=== PATIENT | female | born 1955 | race African-American/Black ===

== ENCOUNTER 2017-07-24 05:51 | Emergency (ER) | payer OTHER ==
[~2017-07-24] VITALS: Ht 162.6 cm; Wt 104.3 kg
[~2017-07-24 05:51] MED LIST: AMLODIPINE BESY10 MG ORAL; ASPIRIN EC81 MG ORAL; ASPIRIN81 MG ORAL; ATENOLOL100 MG ORAL; ATORVASTATIN CA20 MG ORAL; B-50 COMPLEX1 EAC1 PO; CALCIUM600 M1 PO; CITALOPRAM HBR40 M1 ORAL; COREG6.25 MG ORAL; DIOVAN160 MG ORAL; FERROUS SULFAT325 MG ORAL; GABAPENTIN300 MG ORAL; GABAPENTIN600 MG ORAL; GLIPIZIDE5 MG ORAL; GLUCOSAMINE1000 M1 PO; HYDRALAZINE HCL25 M1 ORAL; ISOSORBIDE DINIT5 MG ORAL; METFORMIN HCL500 M1 ORAL; MINOXIDIL2.5 MG PO; OMEGA 3 1,0001 EACH PO; ONDANSETRON ODT4 MG ORAL; OYSTER SHELL C1 EA15 PO; PROTONIX40 MG ORAL; REGLAN10 MG PO; REGLAN5 MG PO; TACTINAL500 M1 PO; TENORMIN50 MG ORAL; TRAZODONE HCL100 MG ORAL; UNOBMED; VITAMIN D31000 UNI2 PO; VITAMIN D400 INTLU ORAL
[2017-07-24 05:55] VITALS: BP 171/100
--- NOTE | 2017-07-24 06:05 | Emergency Room Report ---
History of Present Illness General Chief Complaint: Abdominal Pain Source: Patient (Nasra Martines M.D.) Present Illness HPI 62 yo female with DM, cholecystectomy p/w abdominal pain x 1 day. Patient states pain started when she woke up , localized to epigastric region, non radiating, crampy in nature, intermittent. No relieving or exacerbating factors. Severity is 10 out of 10. Pt reports n/v, 10 episodes of nbnb vomiting, 10 episodes of watery non bloody diarrhea Denies nvd. Denies fever, chills. +cholecystectomy No hx of endoscopies/colonoscopies. Upon review of medical records, patient has been to the emergency room multiple times for abdominal pain, has had CAT scans performed with no acute disease, the last being in 2016. (Nasra Martines M.D.) Allergies: Coded Allergies: No Known Allergies (Verified , 09/25/06) Patient History Past Medical History: see triage record Past Surgical History: kelly Pertinent Family History: none Last Menstrual Period: 2006 Now: No : 3 Para: 3 Reviewed Nursing Documentation: PMH: Agreed, PSxH: Agreed (Nasra Martines M.D. ) Nursing Documentation-PMH Hx Cardiac Problems: Yes Hx Hypertension: Yes Hx Diabetes: Yes Hx Gastrointestinal Problems: Yes - gastroparesis History Of Psychiatric Problem: Yes - Depression (Nasra Martines M.D.) Review of Systems All Other Systems: negative except mentioned in HPI (Nasra Martines M.D.) Physical Exam Vital Signs Date Time Temp Pulse Resp B/P (MAP) Pulse Ox O2 Delivery O2 Flow Rate FiO2 07/24/17 05:44 97.9 75 19 171/100 100 Room Air Sp02 EP Interpretation: reviewed, normal General Appearance: alert, GCS 15, non-toxic, moderate distress, other - Middle aged female, appears to be in pain, however nontoxic, conversing appropriately Head: normocephalic, atraumatic Eyes: bilateral eye normal inspection, bilateral eye PERRL, bilateral eye EOMI ENT: normal ENT inspection, normal pharynx, normal voice, moist mucus membranes Neck: normal inspection, full range of motion, supple Respiratory: normal inspection, lungs clear, normal breath sounds, no respiratory distress, no retraction, no wheezing, speaking full sentences, chest symmetrical Cardiovascular #1: normal inspection, regular rate, rhythm, no edema, normal capillary refill Cardiovascular #2: 2+ radial (R), 2+ radial (L) Gastrointestinal: non-distended, no guarding, other - Tender to epigastric region, no guarding or rebound Musculoskeletal: normal inspection, back normal, normal range of motion, non- tender Neurologic: normal inspection, alert, oriented x3, responsive, motor strength/ tone normal, sensory intact, normal gait, speech normal Psychiatric: normal inspection, judgement/insight normal, memory normal Skin: normal inspection, normal color, no rash, warm/dry, well hydrated, normal turgor (Nasra Martines M.D.) Procedures Central Line Central Line : Consent: Written Central Line Lumen: triple Maximal Sterile Barrier Tech: yes cap, yes mask, yes sterile gown, yes sterile gloves, yes large sterile sheet, yes hand hygiene, yes chlorhexidine prep Central Line Postion: femoral (R) Anesthesia: Lidocaine cc's of anesthesia: 5 Complications: none Central Line Post Position: sutured, good blood return Attempts: One Patient Tolerated: Well Complications: None (Nasra Martines M.D.) Medical Decision Making Diagnostic Impression: Primary Impression: Abdominal pain Additional Impressions: Diabetic gastroparesis Renal insufficiency drug seeking behavior Uncontrolled diabetes mellitus Qualified Codes: E13.8 - Other specified diabetes mellitus with unspecified complications; E13.65 - Other specified diabetes mellitus with hyperglycemia ER Course 62 yo female, hx cholecystectomy, with epigastric pain Differential Diagnosis: DKA, Gastritis, gastroenteritis, appendicitis, diverticulitis, UTI/pyelo At this time abdomen is soft nontender in lower quadrants, not likely to have acute intra-abdominal surgical pathology such as appy, will hold CT for now. Plan: Basic labs, ua, ekg zofran, pain control, IVF will hold CT for now as patient tender only in epigastrum ER course: multiple attempts for peripheral line without success R femoral central line placed as patient could not tolerate laying flat for IJ due to nausea Signed out patient to Dr Cardoso -pending labs -consider imaging however at this time pt nontender lower quadrants -pending symptom control (Nasra Martines M.D.) ER Course Hospital Course 62 yo F presents to ED c/o abdominal pain, vomiting, hyperglycemia Clinical course Patient initially seen and evaluated by Dr. Martines; please see her note for full history and physical Patient pending labs. Endorsed to accepting physician. Central line placed as patient has poor IV access Labs-glucose greater than 300, no DKA, BUN/Cr elevated EKG - NSR, no acute changes interpreted by me patient requiring multiple rounds of medication to get pain control and to stop vomiting Because of insurance patient will be transferred i. I feel this is a highly complex case requiring extensive working including EKG/Rhythm strip, Xray/CT/US, Blood/urine lab work, repeat exams while in ED, and administration of strong opiates/narcotics for pain control, admission to hospital or close patient follow up. diagnosis - abdominal pain, diabetic gastroparesis, renal insufficiency, drug seeking behavior, uncontrollable diabetes Transferred in serious condition Labs Test 07/24/17 07:02 07/24/17 07:05 Venous Bld O2 Saturation (Measured) 7.40 Methemoglobin 0.5 White Blood Count 15.0 K/UL (4.8-10.8) Red Blood Count 4.43 M/UL (4.20-5.40) Hemoglobin 13.7 G/DL (12.0-16.0) Hematocrit 41.7 % (37.0-47.0) Mean Corpuscular Volume 94 FL (80-99) Mean Corpuscular Hemoglobin 30.9 PG (27.0-31.0) Mean Corpuscular Hemoglobin Concent 32.9 G/DL (32.0-36.0) Red Cell Distribution Width 12.3 % (11.6-14.8) Platelet Count 192 K/UL (150-450) Mean Platelet Volume 7.0 FL (6.5-10.1) Neutrophils (%) (Auto) % (45.0-75.0) Lymphocytes (%) (Auto) % (20.0-45.0) Monocytes (%) (Auto) % (1.0-10.0) Eosinophils (%) (Auto) % (0.0-3.0) Basophils (%) (Auto) % (0.0-2.0) Differential Total Cells Counted 100 Neutrophils % (Manual) 88 % (45-75) Lymphocytes % (Manual) 10 % (20-45) Monocytes % (Manual) 2 % (1-10) Eosinophils % (Manual) 0 % (0-3) Basophils % (Manual) 0 % (0-2) Band Neutrophils 0 % (0-8) Platelet Estimate Adequate Platelet Morphology Normal Red Blood Cell Morphology Normal Sodium Level 136 mEQ/L (135-145) Potassium Level 3.4 mEQ/L (3.4-4.9) Chloride Level 97 mEQ/L (98-107) Carbon Dioxide Level 16 mEQ/L (20-30) Anion Gap 23 (5-15) Blood Urea Nitrogen 34 mg/dL (7-23) Creatinine 1.8 mg/dL (0.5-0.9) Estimat Glomerular Filtration Rate 34.5 mL/min (>60) Glucose Level 356 mg/dL (74-106) Calcium Level 10.4 mg/dL (8.6-10.2) Total Bilirubin 0.8 mg/dL (0.0-1.2) Aspartate Amino Transf (AST/SGOT) 26 U/L (5-40) Alanine Aminotransferase (ALT/SGPT) 31 U/L (3-33) Alkaline Phosphatase 151 U/L (35-104) Total Protein 8.4 g/dL (6.6-8.7) Albumin 4.5 g/dL (3.5-5.2) Globulin 3.9 g/dL Albumin/Globulin Ratio 1.1 (1.0-2.7) Lipase 49 U/L (< 60) Acetone Level Negative (NEGATIVE) (RENALDO CARDOSO M.D.) EKG Diagnostic Results Rate: normal Rhythm: NSR ST Segments: no acute changes ASA given to the pt in ED: No (RENALDO CARDOSO M.D.) Rhythm Strip Diag. Results EP Interpretation: yes Rhythm: NSR, no PVC's, no ectopy (RENALDO CARDOSO M.D.) Last Vital Signs Date Time Temp Pulse Resp B/P (MAP) Pulse Ox O2 Delivery O2 Flow Rate FiO2 07/24/17 05:44 97.9 75 19 171/100 100 Room Air (Nasra Martines M.D.) Status: improved (RENALDO CARDOSO M.D.) Disposition: XFER [facility] Condition: Serious Nasra Martines M.D. Jul 24, 2017 06:05 RENALDO CARDOSO M.D. Jul 24, 2017 08:45
[2017-07-24 07:12] LABS: O2 CONTENT VENOUS 7.4
[2017-07-24 07:19] LABS: MEAN CORPUSCULAR HEMOGLOBIN 30.9 PG (27.0-31.0); MEAN CORPUSCULAR HGB CONC 32.9 G/DL (32.0-36.0); MEAN CORPUSCULAR VOLUME 94 FL (80-99); PLATELET COUNT 192 K/UL (150-450); RED BLOOD COUNT 4.43 M/UL (4.20-5.40); RED CELL DISTRIBUTION WIDTH 12.3 % (11.6-14.8)
[2017-07-24 07:32] LABS: ALBUMIN/GLOBULIN RATIO 1.1 (1.0-2.7); CALCIUM 10.4 mg/dL (8.6-10.2); CREATININE 1.8 mg/dL (0.5-0.9); GLOMERULAR FILTRATION RATE 34.5 mL/min (>60); POTASSIUM 3.4 mEQ/L (3.4-4.9); TOTAL PROTEIN 8.4 g/dL (6.6-8.7)
[2017-07-24] MEDS ORDERED: Famotidine 20 MG/ 2ML VIAL IVP ONE (07:45)
[2017-07-24] MEDS ORDERED: HYDROmorphone 1mg/ml Carpuject IVP ONE (07:45)
[2017-07-24 07:49] VITALS: BP 201/76
[2017-07-24 07:55] VITALS: BP 183/92
[2017-07-24] MEDS ORDERED: Metoclopramide 10mg/2ml Inj IVP ONE (08:00)
[2017-07-24 08:17] LABS: LYMPHOCYTES % (MANUAL) 10 % (20-45); NEUTROPHILS % (MANUAL) 88 % (45-75); TOTAL CELLS COUNTED 100
[2017-07-24 08:18] LABS: BAND NEUTROPHILS % (MANUAL) 0 % (0-8); BASOPHILS % (MANUAL) 0 % (0-2); EOSINOPHILS % (MANUAL) 0 % (0-3); PLATELET ESTIMATE ADEQUATE; PLATELET MORPHOLOGY NORMAL
[2017-07-24 08:35] VITALS: BP_SYST 176; BP_SYST 184; BP_DIAS 117; BP_DIAS 84
--- NOTE | 2017-08-11 16:15 | Cardiology Report ---
APPROVED REPORT EKG Measurement Heart [id number] Normal sinus rhythm Left anterior fascicular block Prolonged QT Abnormal ECG
== END 2017-07-24 08:40 | disposition short-term general hospital (02) ==
LOC: EDBD 05:51 → EMR 06:00
DX: R10.9 Unspecified abdominal pain (principal); E11.43 Type 2 diabetes mellitus with diabetic autonomic (poly)neuropathy; E11.65 Type 2 diabetes mellitus with hyperglycemia; K31.84 Gastroparesis; N28.9 Disorder of kidney and ureter, unspecified; Z76.5 Malingerer [conscious simulation]; I10 Essential (primary) hypertension
CPT/HCPCS: 36415; 80053; 82009; 83690; 85007; 85025; 93005; 96361; 96372; 96374; 96375; 96376; 99285; J0360; J1170; J2405; J2765; S0028; Z7502; 96360

== ENCOUNTER 2017-10-26 12:42 | Emergency (ER) | payer OTHER ==
[~2017-10-26] VITALS: Ht 162.6 cm; Wt 93.4 kg
[2017-10-26 12:45] VITALS: BP 185/82
[2017-10-26] MEDS ORDERED: Haloperidol 5mg/ml Inj IM ONE (13:15)
--- NOTE | 2017-10-26 13:24 | Emergency Room Report ---
History of Present Illness General Chief Complaint: Abdominal Pain Source: Patient, Medical Record, EMS Present Illness HPI 62-year-old female brought in by EMS with severe epigastric pain Started at home this morning States nausea without vomiting, no diarrhea, no fever or chills She denies chest pain or shortness of breath Denies urinary complaints Review of EMR shows significant number of visits to ER for intractable abdominal pain and/or vomiting Has known gastroparesis due to diabetes that is poorly controlled Patient states home medications are not working Review of EMR also shows suspicion for drug-seeking behavior and opiate dependence On previous visit patient had poor IV access, required central line Soley to give pain medication previous CT showed likely esophagitis Allergies: Coded Allergies: No Known Allergies (Verified , 09/25/06) Patient History Past Medical History: DM, HTN Past Surgical History: none Pertinent Family History: none Social History: Denies: smoking, alcohol use, drug use Now: No Immunizations: UTD Reviewed Nursing Documentation: PMH: Agreed, PSxH: Agreed Nursing Documentation-PMH Past Medical History: No History, Except For Hx Cardiac Problems: Yes Hx Hypertension: Yes Hx Diabetes: Yes Hx Gastrointestinal Problems: Yes - gastroparesis Review of Systems All Other Systems: negative except mentioned in HPI Physical Exam Vital Signs Date Time Temp Pulse Resp B/P (MAP) Pulse Ox O2 Delivery O2 Flow Rate FiO2 10/26/17 12:35 98.1 82 16 187/87 97 Room Air Sp02 EP Interpretation: reviewed, normal General Appearance: normal inspection, well appearing, no apparent distress, alert, GCS 15, non-toxic, other - Patient writhing on stretcher, dry heaving without vomiting Head: normocephalic, atraumatic Eyes: bilateral eye PERRL, bilateral eye EOMI ENT: normal ENT inspection, hearing grossly normal, normal voice Neck: normal inspection, full range of motion, supple, no bony tend Respiratory: normal inspection, lungs clear, normal breath sounds, no respiratory distress, no retraction, no wheezing Cardiovascular #1: regular rate, rhythm, no edema Gastrointestinal: normal inspection, normal bowel sounds, non tender, soft, no guarding, no hernia Genitourinary: no CVA tenderness Musculoskeletal: normal inspection, back normal, normal range of motion, Shamika' s Sign negative Neurologic: normal inspection, alert, oriented x3, responsive, scheduling agent III-XII nml as tested, speech normal Medical Decision Making Diagnostic Impression: Primary Impression: Abdominal pain Additional Impressions: drug seeking behavior gastroparesis ER Course 62-year-old female With epigastric pain and known diabetes and gastroparesis Vital signs stable, afebrile Abdomen exam nonfocal and serial exam Given previously difficult to control pain and intractable vomiting and need for multiple rounds of IV narcotics, will try haldol as per recent study: [email or web address] Haldol successful Patient resting comfortably in stretcher vital signs have been stable, and inconsistent with her complaints of pain and vomiting With low-dose Haldol 2.5 IM patient with resolution of symptoms able to walk the bathroom feels much better Discharge home Rhythm Strip Diag. Results EP Interpretation: yes Rate: 84 Rhythm: NSR, no PVC's, no ectopy Last Vital Signs Date Time Temp Pulse Resp B/P (MAP) Pulse Ox O2 Delivery O2 Flow Rate FiO2 10/26/17 12:45 96.5 80 16 185/82 100 Room Air Status: improved Disposition: HOME, SELF-CARE DESHAWN COHEN M.D. Oct 26, 2017 13:24
[2017-10-26 15:50] VITALS: BP 181/86
== END 2017-10-26 16:25 | disposition home or self-care (01) ==
LOC: EDBD 12:42 → EMR 13:06
DX: R10.13 Epigastric pain (principal); K31.84 Gastroparesis; Z76.5 Malingerer [conscious simulation]; I10 Essential (primary) hypertension; E11.9 Type 2 diabetes mellitus without complications
CPT/HCPCS: 96372; 99283; J1630

== ENCOUNTER 2020-04-18 05:57 | Emergency (ER) | payer MEDICARE, OTHER ==
[~2020-04-18] VITALS: Ht 170.2 cm; Wt 127.0 kg
[2020-04-18 06:07] VITALS: BP 207/111
--- NOTE | 2020-04-18 06:07 | NUR ---
ED Nurse Note: pt biba frmo home CO abdominal pain, n/v and elevated BS (469) by ambulance. Pt VS elevated, see interventions; ERMD aware. Pt aao x 4, ambulatory with steady gait, skin intact. Pt states hx of gastroparesis. Pt actively retching and vomiting clear emesis, approx 200ml. ERMD at bedside
[2020-04-18] MEDS ORDERED: TRAZODONE HCL150 MG ORAL (06:13)
[2020-04-18] MEDS ORDERED: CARVEDILOL12.5 MG ORAL (06:13)
[2020-04-18] MEDS ORDERED: ERYTHROCIN STE250 MG PO (06:13)
[2020-04-18] MEDS ORDERED: ATORVASTATIN CA40 MG ORAL (06:13)
[2020-04-18] MEDS ORDERED: GLIPIZIDE5 MG ORAL (06:13)
[2020-04-18] MEDS ORDERED: AMLODIPINE BES2.5 MG ORAL (06:13)
--- NOTE | 2020-04-18 06:14 | Emergency Room Report ---
History of Present Illness General Chief Complaint: Abdominal Pain Source: Patient, EMS Present Illness HPI Patient is brought in by EMS. She complains of abdominal pain that began yesterday evening. It is epigastric nonradiating. She has been also nauseated and vomiting unable to keep anything down today. Her blood glucose in the field was 459. The patient is a hpo-ikxvawd-hqfadnigk diabetic. She has had pain like this before and states that it is consistent with gastroparesis. She has had diarrhea that she has not noted the color but denies having any blood. She is not vomiting any blood. She feels feverish but did not document a temperature. She denies dysuria. Her blood pressure was also elevated in the field. She denies any chest pain or palpitations. She rates the pain 10/10 and burning and pressure in her epigastric area. No chills, sore throat, shortness of breath, cough, joint pain, rashes, depression, anxiety, visual changes, dizziness, headache. When last here, she was felt to exhibit pain medicine seeking behavior. Review of charts reveal no h/o pancreatitis (although in retrospect patient says there was something mentioned about her pancreas but she cannot remember the specifics). Allergies: Coded Allergies: No Known Allergies (Verified , 09/25/06) COVID-19 Screening Contact w/high risk pt: No Recent Travel to affected area: No Experienced COVID-19 symptoms?: No COVID-19 Testing performed DENTAL ASSISTANT TEACHER: No Patient History Past Medical History: see triage record Past Surgical History: kelly Social History: Denies: smoking, alcohol use Social History Narrative lives with daughter Reviewed Nursing Documentation: PMH: Agreed; PSxH: Agreed Nursing Documentation-PM Past Medical History: No History, Except For Hx Cardiac Problems: Yes Hx Hypertension: Yes Hx Diabetes: Yes Hx Gastrointestinal Problems: Yes - gastroparesis Review of Systems All Other Systems: negative except mentioned in HPI Physical Exam Vital Signs Date Time Temp Pulse Resp B/P (MAP) Pulse Ox O2 Delivery O2 Flow Rate FiO2 04/18/20 05:59 99.0 84 16 207/111 (143) 94 Room Air Sp02 EP Interpretation: reviewed, normal General Appearance: GCS 15, non-toxic, mild distress - pain, obese Head: normocephalic, atraumatic Eyes: bilateral eye normal inspection, bilateral eye PERRL, bilateral eye EOMI ENT: moist mucus membranes Neck: supple Respiratory: normal inspection Cardiovascular #1: regular rate, rhythm, no edema Cardiovascular #2: 2+ radial (R) Gastrointestinal: normal inspection, normal bowel sounds, no mass, non- distended, no guarding, no rebound, tenderness - Epigastric Genitourinary: no CVA tenderness Musculoskeletal: back normal, normal range of motion, no calf tenderness, gait/ station normal Neurologic: alert, oriented x3, grossly normal Psychiatric: anxious - In pain Skin: no rash, warm/dry, other - Lipoma right posterior neck Procedures Critical Care Time Critical Care Time Total Critical Care Time: 30 min bedside evaluation and treatment excludes procedures (EKG, CVP). Reason for critical care: hyperglycemia, repeated exams, analgesia, elevated lactic acid, treatment of hypertension Possible complications: hypotension, hypertension, MD, shock, arrhythmias, metabolic acidosis, end organ damage, respiratory failure. Interventions: CVP, repeated exams and administration of analgesics, treatment of hyperglycemia with fluids and insulin, hydralazine Course: Diabetic patient with epigastric pain and hyperglycemia. RNs unable to start IV. Analgesia and Reglan rewritten IM. CVP and labs obtained. Hyperglycemia treated with fluids. Repeat eval after fluid bolus and insulin ordered. Repeat analgesia and zofran. Unable to give PO meds for hypertension - hydralazine given. Repeat BP better controlled. Discussion with accepting MD. Consultations: nursing staff, EMS, accepting MD Performed by: Dr. Hatfield Tolerated well condition = serious Central Line Central Line : Consent: Verbal Central Line Lumen: triple Maximal Sterile Barrier Tech: yes cap, yes mask, yes sterile gown, yes sterile gloves, yes large sterile sheet, yes hand hygiene, yes chlorhexidine prep Central Line Postion: femoral (L) Anesthesia: Lidocaine cc's of anesthesia: 10 Complications: none Central Line Post Position: sutured, good blood return Attempts: One Patient Tolerated: Well Complications: None Progress bloods drawn for lab = 20 ml. EBL = 23 ml Medical Decision Making Diagnostic Impression: Primary Impression: Acute pancreatitis Qualified Codes: K85.90 - Acute pancreatitis without necrosis or infection, unspecified Additional Impressions: Hyperglycemia Diabetic gastroparesis Elevated lactic acid level Renal insufficiency Hypertension Qualified Codes: I10 - Essential (primary) hypertension Dehydration Leukocytosis Qualified Codes: D72.828 - Other elevated white blood cell count ER Course Diabetic patient presents with abdominal pain and hyperglycemia. Differential includes diabetic ketoacidosis, diabetic gastroparesis, gastritis, pancreatitis , cholecystitis amongst others. Based on her history and physical exam most likely diagnosis is diabetic gastroparesis. Evaluation with EKG, chest x-ray, abdominal film and labs. Treatment with IV hydration, Reglan, Benadryl, Pepcid and morphine. Serial blood sugars will be obtained and it is expected that her glucose will improve with IV hydration. Meds given IM as needed central line. Central line started and blood drawn. Chest x-ray with increased birch. Abdomen status post Ana, central line in place with paucity of gas. Recheck 464 after initial bolus. Insulin 10 units given IV. Patient with continued pain. Dilaudid given 2 doses. Labs significant for leukocytosis, hyperglycemia with bicarb of 19, lipase 1981. Elevated lactic acid. Even though leukocytosis and elevated lactic acid, no obvious infective source and antibiotics held. Ultrasound not emergent as patient post kelly and also abdomen soft. Patient blood pressure remains high. As she is n.p.o. hydralazine is given IV as her heart rate is 84 at this time. Discussed with receiving physician Dr. Prasad accepts the patient. BP improved after hydralazine. Glucose 312 and trending down. Pain improved 1121. Repeat lactic acid normal. Stable for transfer. Laboratory Tests Test 04/18/20 07:05 04/18/20 07:45 04/18/20 08:28 Sodium Level 141 MMOL/L (136-145) Potassium Level 4.3 MMOL/L (3.5-5.1) Chloride Level 101 MMOL/L (98-107) Carbon Dioxide Level 19 MMOL/L (21-32) L Anion Gap 21 mmol/L (5-15) H Blood Urea Nitrogen 44 mg/dL (7-18) H Creatinine 2.5 MG/DL (0.55-1.30) H Estimated Glomerular Filtration Rate 23.4 mL/min (>60) Glucose Level 518 MG/DL (74-106) *H Lactic Acid Level 3.70 mmol/L (0.4-2.0) H 1.70 mmol/L (0.66-2.22) Calcium Level 9.6 MG/DL (8.5-10.1) Magnesium Level 1.7 MG/DL (1.8-2.4) L Total Bilirubin 0.8 MG/DL (0.2-1.0) Aspartate Amino Transferase (AST) 56 U/L (15-37) H Alanine Aminotransferase (ALT) 51 U/L (12-78) Alkaline Phosphatase 147 U/L (46-116) H Troponin I 0.009 ng/mL (0.000-0.056) Total Protein 8.3 G/DL (6.4-8.2) H Albumin 3.9 G/DL (3.4-5.0) Globulin 4.4 g/dL Albumin/Globulin Ratio 0.9 (1.0-2.7) L Lipase 1981 U/L (73-393) H White Blood Count 13.3 K/UL (4.8-10.8) H Red Blood Count 3.80 M/UL (4.20-5.40) L Hemoglobin 12.1 G/DL (12.0-16.0) Hematocrit 34.0 % (37.0-47.0) L Mean Corpuscular Volume 89 FL (80-99) Mean Corpuscular Hemoglobin 31.7 PG (27.0-31.0) H Mean Corpuscular Hemoglobin Concent 35.5 G/DL (32.0-36.0) Red Cell Distribution Width 11.6 % (11.6-14.8) Platelet Count 171 K/UL (150-450) Mean Platelet Volume 6.9 FL (6.5-10.1) Neutrophils (%) (Auto) % (45.0-75.0) Lymphocytes (%) (Auto) % (20.0-45.0) Monocytes (%) (Auto) % (1.0-10.0) Eosinophils (%) (Auto) % (0.0-3.0) Basophils (%) (Auto) % (0.0-2.0) Differential Total Cells Counted 100 Neutrophils % (Manual) 87 % (45-75) H Lymphocytes % (Manual) 8 % (20-45) L Monocytes % (Manual) 5 % (1-10) Eosinophils % (Manual) 0 % (0-3) Basophils % (Manual) 0 % (0-2) Band Neutrophils 0 % (0-8) Platelet Estimate Adequate Platelet Morphology Normal Red Blood Cell Morphology Normal Prothrombin Time 12.1 SEC (9.30-11.50) H Prothrombin Time INR 1.1 (0.9-1.1) Activated Partial Thromboplast Time 24 SEC (23-33) Urine Color Pale yellow Urine Appearance Clear Urine pH 6 (4.5-8.0) Urine Specific [place] 1.010 (1.005-1.035) Urine Protein 4+ (NEGATIVE) H Urine Glucose (UA) 4+ (NEGATIVE) H Urine Ketones 2+ (NEGATIVE) H Urine Blood 4+ (NEGATIVE) H Urine Nitrite Negative (NEGATIVE) Urine Bilirubin Negative (NEGATIVE) Urine Urobilinogen Normal MG/DL (0.0-1.0) Urine Leukocyte Esterase Negative (NEGATIVE) Urine RBC 2-4 /HPF (0 - 2) H Urine WBC 0 /HPF (0 - 2) Urine Squamous Epithelial Cells Few /LPF (NONE/OCC) Urine Bacteria Few /HPF (NONE) EKG Diagnostic Results Rate: normal Rhythm: NSR ST Segments: no acute changes Rhythm Strip Diag. Results EP Interpretation: yes Rhythm: NSR, no PVC's, no ectopy Chest X-Ray Diagnostic Results Chest X-Ray Diagnostic Results : Chest X-Ray Ordered: Yes # of Views/Limited/Complete: 1 View Indication: Other EP Interpretation: Yes Interpretation: no consolidation, no effusion, no pneumothorax, other - Increase birch bilaterally Impression: Other Electronically Signed by: Electronically signed by Lui Hatfield MD Other X-Ray Diagnostic Results Other X-Ray Diagnostic Results : X-Ray ordered: Abdomen # of Views/Limited Vs Complete: 2 View Indication: Pain EP Interpretation: Yes Interpretation: no sbo, other - Paucity of gas, kelly clips, central line left Impression: Other Electronically Signed by: Electronically signed by Lui Hatfield MD Last Vital Signs Date Time Temp Pulse Resp B/P (MAP) Pulse Ox O2 Delivery O2 Flow Rate FiO2 04/18/20 11:35 98.9 81 19 138/74 96 Room Air Status: improved Disposition: SHORT-TERM [facility] Condition: Serious Lui Hatfield MD April 18, 2020 06:14
[2020-04-18] MEDS ORDERED: Metoclopramide 10mg/2ml Inj IVP ONE (06:15)
[2020-04-18] MEDS ORDERED: Morphine Sulfate 4mg/ml Inj (IV USE ONLY) IVP ONE (06:15)
[2020-04-18] MEDS ORDERED: DiphenhydrAMINE 50mg/ml Inj IVP ONE (06:15)
--- NOTE | 2020-04-18 06:30 | NUR ---
ED Nurse Note: ERMD at bedside
--- NOTE | 2020-04-18 06:50 | NUR ---
ED Nurse Note: all medications administered, pt tolerated well. will continue to monitor.
[2020-04-18] MEDS ORDERED: DiphenhydrAMINE 50mg/ml Inj IM ONE (07:00)
[2020-04-18] MEDS ORDERED: Lidocaine 1% Plain 30 ml INJ ONE (07:00)
[2020-04-18] MEDS ORDERED: Morphine Sulfate 10mg/ml Inj IM ONE (07:00)
[2020-04-18] MEDS ORDERED: Metoclopramide 10mg/2ml Inj IM ONE (07:00)
--- NOTE | 2020-04-18 07:05 | NUR ---
ED Nurse Note: ERMD at bedside for central line placement
--- NOTE | 2020-04-18 07:10 | NUR ---
ED Nurse Note: All bloodwork sent to lab
--- NOTE | 2020-04-18 07:20 | NUR ---
HAND-OFF: Report given to SANDRO Burgos.
[2020-04-18 07:22] VITALS: BP 189/101
--- NOTE | 2020-04-18 07:22 | NUR ---
ED Nurse Note: Received report from Bud JO. Pt awake, alert and oriented. Not in any distress. Will cont to monitor.
--- NOTE | 2020-04-18 07:32 | NUR ---
ED Nurse Note: Xray at bedside.
--- NOTE | 2020-04-18 07:57 | NUR ---
ED Nurse Note: Blood and urine specimen collected and sent to lab.
[2020-04-18 08:02] LABS: ALANINE AMINOTRANSFERASE 51 U/L (12-78); ALBUMIN 3.9 G/DL (3.4-5.0); ALBUMIN/GLOBULIN RATIO 0.9 (1.0-2.7); ALKALINE PHOSPHATASE 147 U/L (46-116); ANION GAP 21 mmol/L (5-15); ASPARTATE AMINO TRANSFERASE 56 U/L (15-37); BILIRUBIN,TOTAL 0.8 MG/DL (0.2-1.0); BLOOD UREA NITROGEN 44 mg/dL (7-18); CALCIUM 9.6 MG/DL (8.5-10.1); CARBON DIOXIDE 19 MMOL/L (21-32); CHLORIDE 101 MMOL/L (98-107); CREATININE 2.5 MG/DL (0.55-1.30); POTASSIUM 4.3 MMOL/L (3.5-5.1); SODIUM 141 MMOL/L (136-145)
[2020-04-18 08:07] LABS: APPEARANCE,URINE CLEAR; BILIRUBIN, URINE NEGATIVE (NEGATIVE); COLOR,URINE PALE YELLOW; GLUCOSE, URINE (UA) 4+ (NEGATIVE); KETONES,URINE 2+ (NEGATIVE); LEUKOCYTE ESTERASE ,URINE NEGATIVE (NEGATIVE); NITRITE,URINE NEGATIVE (NEGATIVE); PH,URINE 6 (4.5-8.0); PROTEIN,URINE 4+ (NEGATIVE); UROBILINOGEN,URINE NORMAL MG/DL (0.0-1.0)
[2020-04-18 08:09] LABS: HEMOGLOBIN 12.1 G/DL (12.0-16.0); MEAN CORPUSCULAR VOLUME 89 FL (80-99); PLATELET COUNT 171 K/UL (150-450); RED CELL DISTRIBUTION WIDTH 11.6 % (11.6-14.8); WHITE BLOOD COUNT 13.3 K/UL (4.8-10.8)
--- NOTE | 2020-04-18 08:09 | Diagnostic Imaging Report ---
EXAM: XR Chest, 1 View CLINICAL HISTORY: ABD PAIN TECHNIQUE: Frontal view of the chest. COMPARISON: 12/07/2010 FINDINGS: Lungs: There are perihilar interstitial infiltrates suggestive of mild pulmonary edema. There is no area of consolidation. Pleural space: Unremarkable. No pneumothorax. Heart: The cardiac silhouette is at the upper limits of normal. Mediastinum: Unremarkable. Bones/joints: Unremarkable. IMPRESSION: Findings are most suggestive of mild pulmonary edema.
[2020-04-18] MEDS ORDERED: Insulin Human Regular 100units/ml 3ml IV ONE (08:15)
[2020-04-18 08:16] LABS: INR 1.1 (0.9-1.1)
--- NOTE | 2020-04-18 08:22 | NUR ---
ED Nurse Note: Bedside accucheck: 464. ERMD notified and order insulin 10units.
--- NOTE | 2020-04-18 09:05 | NUR ---
ED Nurse Note: Pt c/o abdominal pain 09/03. ERMD notified. Dilaudid 0.5ml given as ordered.
--- NOTE | 2020-04-18 09:07 | NUR ---
ED Nurse Note: Bedside accucheck: 348. ERMD notified.
[2020-04-18] MEDS ORDERED: Hydromorphone 0.5mg/0.5ml inj IVP ONE (09:15)
[2020-04-18] MEDS ORDERED: HYDROmorphone 1mg/ml Carpuject IVP ONE (09:15)
[2020-04-18 09:24] VITALS: BP 149/81
--- NOTE | 2020-04-18 09:36 | NUR ---
ED Nurse Note: Report given to Jacoby JO from [facility].
--- NOTE | 2020-04-18 09:58 | Diagnostic Imaging Report ---
EXAM: XR Abdomen CLINICAL HISTORY: ABD PAIN TECHNIQUE: Frontal view of the abdomen/pelvis. COMPARISON: July 13, 2016. FINDINGS: The distal tip of the left groin approach catheter is projected over the left hemisacrum. No dilated bowel loops. Cholecystectomy clips. Likely phleboliths in pelvis. IMPRESSION: The distal tip of the left groin approach catheter is projected over the left hemisacrum. Unable to confirm venous location based on this radiograph. Correlate with venous return. <MYCVCSECTION> Communications: 04/18/20 10:02 Call Nurse Called SANDRO Burgos in ER on 04/18 10:02 (-07:00)
[2020-04-18 10:30] VITALS: BP 135/65
--- NOTE | 2020-04-18 11:00 | NUR ---
ED Nurse Note: Pt seen sleeping in bed. No acute distress. Breathing even and unlabored. Will cont to monitor.
[2020-04-18 11:35] VITALS: BP 138/74
--- NOTE | 2020-04-18 11:35 | NUR ---
ED Nurse Note: Pt cleared by ERMJoshua for transfer to [facility]. Pt was picked by 4 EMT BLS via [facility]. AAOx4, verbally resposnive. Not in any distress. Afebrile. Ambulatory. Report given to Jacoby JO. Pt has central line on left femoral patent and intact. VSS. Pt left with all belongings.
== END 2020-04-18 11:35 | disposition short-term general hospital (02) ==
LOC: EDUNIT# 05:57 → EDBD 05:57 → EMR 06:19
DX: K85.90 Acute pancreatitis without necrosis or infection, unspecified (principal); E11.65 Type 2 diabetes mellitus with hyperglycemia; E11.43 Type 2 diabetes mellitus with diabetic autonomic (poly)neuropathy; K31.84 Gastroparesis; N28.9 Disorder of kidney and ureter, unspecified; I10 Essential (primary) hypertension; E86.0 Dehydration; D72.828 Other elevated white blood cell count; R11.2 Nausea with vomiting, unspecified; Z90.49 Acquired absence of other specified parts of digestive tract; E66.9 Obesity, unspecified; D17.0 Benign lipomatous neoplasm of skin and subcutaneous tissue of head, face and neck; R74.0 Nonspecific elevation of levels of transaminase and lactic acid dehydrogenase [LDH]
CPT/HCPCS: 36415; 71045; 74018; 80053; 81003; 82962; 83605; 83690; 83735; 84484; 85007; 85025; 85610; 85730; 93005; 96361; 96372; 96374; 96375; 99291; J0360; J1170; J1200; J1815; J2001; J2270; J2765; J7030; S0028